=== PATIENT | female | born 1950 | race Caucasian/White ===

== ENCOUNTER 2017-10-25 05:52 | Observation (INO) | payer BC, MEDICARE ==
[2017-10-25] MEDS ORDERED: LACTATED RINGER'S 1,000 ML IV* (06:00)
[2017-10-25] MEDS ORDERED: CEFAZOLIN 2 GM/50 ML (PMX) 50 ML IVPB (06:00)
[2017-10-25] MEDS ORDERED: LIDOCAINE 2% (SDV) 5 ML INJ (07:00)
[2017-10-25] MEDS ORDERED: PROPOFOL 20 ML (07:54)
[2017-10-25] MEDS ORDERED: ROCURONIUM 50 MG INJ (07:57)
[2017-10-25] MEDS ORDERED: LABETALOL HCL 20MG INJ (08:37)
[2017-10-25] MEDS: POLYMYXIN/BACITRACIN 1L IRRIG (08:52)
[2017-10-25] MEDS: GELATIN SIZE 100 SPONGE (08:52)
[2017-10-25] MEDS: BUPIVACAINE 0.5%/EPI (SDV) 30 ML INJ (08:52)
[2017-10-25] MEDS: THROMBIN 5000 UNIT VIAL (08:52)
[2017-10-25] MEDS ORDERED: DEXAMETHASONE 4 MG/ML 1 ML INJ (09:16)
[2017-10-25] MEDS ORDERED: morphine 10 MG INJ (09:25)
[2017-10-25] MEDS ORDERED: ONDANSETRON 4 MG INJ (10:38)
[2017-10-25] MEDS ORDERED: SUGAMMADEX SODIUM 200 MG/2 ML VIAL IV (10:38)
[2017-10-25] MEDS: BETAMET NA PHOS/AC(6 MG/ML) 5ML INJ (10:59)
[2017-10-25] MEDS ORDERED: PROCHLORPERAZINE 10 MG TAB PO (11:30)
[2017-10-25] MEDS ORDERED: NACL 0.9% 3 ML SYG IV (11:30)
[2017-10-25] MEDS ORDERED: HYDROmorphONE 0.5 MG/0.5 ML SYG IV (11:30)
[2017-10-25] MEDS ORDERED: HYDROCODONE/APAP (5/325) TAB PO (11:30)
[2017-10-25] MEDS ORDERED: ONDANSETRON 4 MG INJ IV ×2 (11:30→12:00)
[2017-10-25] MEDS ORDERED: NALOXONE (0.4 MG/ML) INJ IV (11:30)
[2017-10-25] MEDS ORDERED: THROMBIN 5000 UNIT VIAL (11:42)
[2017-10-25] MEDS ORDERED: DIPHENHYDRAMINE 50 MG INJ IV (12:00)
[2017-10-25] MEDS ORDERED: LABETALOL HCL 20MG INJ IV (12:00)
[2017-10-25] MEDS ORDERED: MEPERIDINE 25 MG INJ IV (12:00)
[2017-10-25] MEDS ORDERED: METOCLOPRAMIDE 10 MG INJ IV (12:00)
[2017-10-25] MEDS ORDERED: FENTAnyl 50 MCG/ML VIAL IV ×3 (12:00)
[2017-10-25] MEDS ORDERED: ALBUTEROL 0.083% (NEB) 2.5 MG/3 ML AMP HHN (12:00)
[2017-10-25] MEDS ORDERED: hydrALAzine 20 MG INJ IV (12:00)
[2017-10-25] MEDS ORDERED: KETOROLAC 30 MG INJ IV (12:00)
[2017-10-25] MEDS ORDERED: EPHEDrine SULFATE 50 MG/5 ML SYG IV (12:00)
[2017-10-25] MEDS ORDERED: OXYCODONE/ACETAMINOPHEN (5/325) TAB PO ×2 (12:00)
[2017-10-25] MEDS ORDERED: HYDROmorphONE (0.2 MG/ML) 10ML SYG IV ×3 (12:00)
[2017-10-25] MEDS: HYDROCODONE/APAP (5/325) TAB PO ×2 (13:36→17:12)
[2017-10-26] MEDS: HYDROCODONE/APAP (5/325) TAB PO ×2 (00:44→08:13)
== END 2017-10-26 11:40 | disposition home or self-care (01) ==
LOC: REC 05:52 → MS1 13:20
DX: M43.16 Spondylolisthesis, lumbar region (principal); M48.061 Spinal stenosis, lumbar region without neurogenic claudication; M54.16 Radiculopathy, lumbar region; E78.5 Hyperlipidemia, unspecified
CPT/HCPCS: 63047; 72100; 86850; 86900; 86901; 97116; 97161; 97530; 99217